=== PATIENT | female | born 1975 | race Caucasian/White ===

== ENCOUNTER 2022-02-06 20:20 | Emergency (ER) | payer MEDICAID ==
[~2022-02-06] VITALS: Ht 144.8 cm; Wt 83.3 kg
[2022-02-06 20:25] VITALS: BP 145/98
== END 2022-02-07 00:33 | disposition left against medical advice (07) ==
LOC: ER 20:20
DX: Z53.21 Procedure and treatment not carried out due to patient leaving prior to being seen by health care provider (principal)